=== PATIENT | male | born 1990 | race Two or more races ===

== ENCOUNTER 2024-12-15 09:58 | Emergency (ER) | payer OTHER ==
[~2024-12-15] VITALS: Ht 177.8 cm; Wt 149.2 kg
[2024-12-15] MEDS ORDERED: CANDESARTAN-HC1 EACH PO (10:20)
[2024-12-15] MEDS ORDERED: KETOROLAC TROMETHAMINE 60 MG VIAL IM ONE (11:45)
== END 2024-12-15 14:27 ==
LOC: ER 09:58
DX: M79.671 Pain in right foot (principal); M10.9 Gout, unspecified; E78.00 Pure hypercholesterolemia, unspecified; K76.0 Fatty (change of) liver, not elsewhere classified; M77.31 Calcaneal spur, right foot